=== PATIENT | male | born 1965 | race Caucasian/White ===

== ENCOUNTER 2017-01-20 21:13 | Emergency (ER) | payer BC ==
[2017-01-20] MEDS ORDERED: Doxycycline 100 MG Cap ONE (21:45)
--- NOTE | 2017-01-20 21:50 | EDM.PDOC ---
ED HPI GENERAL MEDICAL PROBLEM - General Chief Complaint: General Stated Complaint: Bee Sting Time Seen by Provider: 01/20/17 21:25 Source of Information: Reports: Patient History Limitations: Reports: No Limitations - History of Present Illness INITIAL COMMENTS - FREE TEXT/NARRATIVE: Patient is a 51 year old man who was bitten by a bee on his left hand middle finger knuckle. It has gotten swollen and red through the day and he has a red streak up his left forearm. He has no fever or chills and no other complaints. Onset: Today Onset Time: 12:00 Duration: Day(s): (1) Location: Reports: Upper Extremity, Left Quality: Reports: Dull Severity: Mild Improves with: Reports: None Worsens with: Reports: None Context: Reports: Other (Bit by bee) Associated Symptoms: Reports: No Other Symptoms - Related Data Allergies Allergy/AdvReac Type Severity Reaction Status Date / Time No Known Allergies Allergy Verified 01/20/17 21:39 Home Meds: Home Meds NK [No Known Home Meds] 01/20/17 [History] Past Medical History - Past Health History Medical/Surgical History: Denies Medical/Surgical History ED ROS GENERAL - Review of Systems Review Of Systems: ROS reveals no pertinent complaints other than HPI. ED EXAM, GENERAL - Physical Exam Exam: See Below Exam Limited By: No Limitations General Appearance: Alert, WD/WN, No Apparent Distress Eye Exam: Bilateral Eye: EOMI, Normal Fundi, Normal Inspection, PERRL Ears: Normal External Exam, Normal Canal, Hearing Grossly Normal, Normal TMs Ear Exam: Bilateral Ear: Auricle Normal, Canal Normal, TM normal Nose: Normal Inspection, Normal Mucosa, No Blood Throat/Mouth: Normal Inspection, Normal Lips, Normal Teeth, Normal Gums, Normal Oropharynx, Normal Voice, No Airway Compromise Head: Atraumatic, Normocephalic Neck: Normal Inspection, Supple, Non-Tender, Full Range of Motion Respiratory/Chest: No Respiratory Distress, Lungs Clear, Normal Breath Sounds, No Accessory Muscle Use, Chest Non-Tender Cardiovascular: Normal Peripheral Pulses, Regular Rate, Rhythm, No Edema, No Gallop, No JVD, No Murmur, No Rub Peripheral Pulses: 4+: Radial (L), Radial (R) GI/Abdominal: Normal Bowel Sounds, Soft, Non-Tender, No Organomegaly, No Distention, No Abnormal Bruit, No Mass Extremities: Increased Warmth, Redness (Left hand going up forearm.), Other ( Can move hand and make fist without pain.) Neurological: Alert, Oriented, CN II-XII Intact, Normal Cognition, Normal Gait, Normal Reflexes, No Motor/Sensory Deficits Psychiatric: Normal Affect, Normal Mood Skin Exam: Erythema, Increased Warmth, Rash (Left hand and forearm.) Lymphatic: No Adenopathy Course - Vital Signs Text/Narrative:: Uneventful ED course. He will be put on Doxycycline 100 mg po bid x 10 days, Benedryl 50 mg po q 4 hours prn and Simran 180 mg po q daY. Rest, elevate, warm erika hand and return to ED for IV antibiotics if infections worsens despite being on antibiotic. Last Recorded V/S: Last Vital Signs Temp 37.1 C 01/20/17 21:20 Pulse 81 01/20/17 21:20 Resp 20 01/20/17 21:20 BP 145/103 H 01/20/17 21:20 Pulse Ox 98 01/20/17 21:20 Departure - Departure Time of Disposition: 21:52 Disposition: Home, Self-Care 01 Condition: Good Clinical Impression: Bee sting reaction, Cellulitis of hand - Discharge Information
== END 2017-01-20 21:49 | disposition home or self-care (01) ==
LOC: LB.ED 21:13
DX: T63.441A Toxic effect of venom of bees, accidental (unintentional), initial encounter (principal); L03.114 Cellulitis of left upper limb
CPT/HCPCS: 99282; A9270-GY